=== PATIENT | female | born 1960 | race Two or more races ===

== ENCOUNTER 2020-03-30 18:40 | Emergency (ER) | payer OTHER ==
[~2020-03-30] VITALS: Ht 167.6 cm; Wt 72.6 kg
[2020-03-30 18:51] VITALS: BP 128/72
== END 2020-03-30 20:20 | disposition left against medical advice (07) ==
LOC: ER 18:40 → EDBD 18:40 → ER 20:20
DX: R51.9 Headache, unspecified (principal); Z53.21 Procedure and treatment not carried out due to patient leaving prior to being seen by health care provider
CPT/HCPCS: 70450